=== PATIENT | male | born 1980 | race Caucasian/White ===

== ENCOUNTER 2019-12-17 13:18 | Emergency (ER) | payer SELFPAY ==
[2019-12-17 14:09] LABS: Absolute Lymphocytes (CBC) 1.6 K/uL (0.7-4.9); Basophils % 0.5 % (0-1.3); Hematocrit 44.2 % (39.6-49.0); Lymphocytes % 23.8 % (15.3-44.8); MPV 8.6 fL (7.6-11.3)
[2019-12-17 14:24] LABS: Albumin 4.5 g/dL (3.4-5.0); Bilirubin Direct 0.2 mg/dL (0-0.2); Bilirubin Total 0.7 mg/dL (0.2-1.0); Potassium 3.7 mmol/L (3.5-5.1); Protein, Total 7.8 g/dL (6.4-8.2)
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
[2019-12-17 15:38] VITALS: BP 121/82; TEMP 97.8; O2SAT 98
== END 2019-12-17 15:19 | disposition home or self-care (01) ==
LOC: ER 13:18
DX: S16.1XXA Strain of muscle, fascia and tendon at neck level, initial encounter (principal); S29.012A Strain of muscle and tendon of back wall of thorax, initial encounter; M43.06 Spondylolysis, lumbar region; V49.9XXA Car occupant (driver) (passenger) injured in unspecified traffic accident, initial encounter
CPT/HCPCS: 36415; 70450; 71250; 72125; 80048; 80076; 83690; 85025; 99284